=== PATIENT | male | born 1990 | race Two or more races ===

== ENCOUNTER → 2020-05-01 | Day surgery (SDC) | payer OTHER ==
[~2020-05-01] MED LIST: KEPPRA500 MG PO
== END | disposition home or self-care (01) ==
LOC: ADM 04-26 10:15 → CIR.AMB 06:19 → EDBD 10:15 → CIR.AMB 11:00
PROVIDERS: ATTEND Colon & Rectal Surgery
DX: D12.8 Benign neoplasm of rectum (principal); K64.2 Third degree hemorrhoids; A63.0 Anogenital (venereal) warts
CPT/HCPCS: 0184T; 46260; 46924